=== PATIENT | male | born 1935 | race Caucasian/White ===

== ENCOUNTER → 2017-09-09 | Outpatient (CLI) | payer MEDICARE | END | disposition home or self-care (01) | LOC: PCVCCLINIC 11:17 | DX: I48.91 Unspecified atrial fibrillation (principal); E78.4 Other hyperlipidemia; I10 Essential (primary) hypertension; I45.10 Unspecified right bundle-branch block; R94.31 Abnormal electrocardiogram [ECG] [EKG]; Z79.82 Long term (current) use of aspirin; Z79.899 Other long term (current) drug therapy | CPT/HCPCS: 80061; 93005; G0463 ==

== ENCOUNTER → 2018-03-10 | Outpatient (CLI) | payer MEDICARE | END | disposition home or self-care (01) | LOC: PCVCCLINIC 10:41 | DX: I10 Essential (primary) hypertension (principal); E78.5 Hyperlipidemia, unspecified; I48.91 Unspecified atrial fibrillation | CPT/HCPCS: 80061 ==

== ENCOUNTER → 2018-11-21 | Outpatient (CLI) | payer MEDICARE | END | disposition home or self-care (01) | LOC: PCVCCLINIC 11:42 | PROVIDERS: ATTEND Internal Medicine | DX: I25.10 Atherosclerotic heart disease of native coronary artery without angina pectoris (principal); I10 Essential (primary) hypertension; I48.91 Unspecified atrial fibrillation; E11.9 Type 2 diabetes mellitus without complications; K21.9 Gastro-esophageal reflux disease without esophagitis; Z86.79 Personal history of other diseases of the circulatory system; Z87.891 Personal history of nicotine dependence; Z79.82 Long term (current) use of aspirin; Z88.8 Allergy status to other drugs, medicaments and biological substances | CPT/HCPCS: 93005; G0463; 36415 ==

== ENCOUNTER → 2018-12-12 | Outpatient (CLI) | payer MEDICARE | END | disposition home or self-care (01) | LOC: PCVCCLINIC 10:00 | PROVIDERS: ATTEND Internal Medicine | DX: R06.00 Dyspnea, unspecified (principal); I10 Essential (primary) hypertension; Z86.79 Personal history of other diseases of the circulatory system; Z79.82 Long term (current) use of aspirin | CPT/HCPCS: G0463 ==

== ENCOUNTER → 2019-01-09 | Outpatient (CLI) | payer MEDICARE | END | disposition home or self-care (01) | LOC: PCVCCLINIC 10:00 | PROVIDERS: ATTEND Internal Medicine | DX: I48.0 Paroxysmal atrial fibrillation (principal); I25.119 Atherosclerotic heart disease of native coronary artery with unspecified angina pectoris; I35.0 Nonrheumatic aortic (valve) stenosis; K21.9 Gastro-esophageal reflux disease without esophagitis; E03.9 Hypothyroidism, unspecified; E11.9 Type 2 diabetes mellitus without complications; I10 Essential (primary) hypertension; E78.5 Hyperlipidemia, unspecified; Z87.891 Personal history of nicotine dependence; Z88.5 Allergy status to narcotic agent | CPT/HCPCS: 93005; G0463 ==

== ENCOUNTER → 2019-02-21 | Outpatient (CLI) | payer MEDICARE | END | disposition home or self-care (01) | LOC: PCVCCLINIC 08:50 | PROVIDERS: ATTEND Internal Medicine | DX: I48.91 Unspecified atrial fibrillation (principal); I10 Essential (primary) hypertension; E78.5 Hyperlipidemia, unspecified; I35.0 Nonrheumatic aortic (valve) stenosis; E11.9 Type 2 diabetes mellitus without complications; K21.9 Gastro-esophageal reflux disease without esophagitis; E03.9 Hypothyroidism, unspecified; Z88.5 Allergy status to narcotic agent | CPT/HCPCS: 93005; G0463 ==

== ENCOUNTER → 2019-06-20 | Outpatient (CLI) | payer MEDICARE | END | disposition home or self-care (01) | LOC: PCVCCLINIC 15:14 | PROVIDERS: ATTEND Internal Medicine | DX: I48.0 Paroxysmal atrial fibrillation (principal); R94.31 Abnormal electrocardiogram [ECG] [EKG]; I10 Essential (primary) hypertension; I35.0 Nonrheumatic aortic (valve) stenosis; I25.10 Atherosclerotic heart disease of native coronary artery without angina pectoris; K21.9 Gastro-esophageal reflux disease without esophagitis; E03.9 Hypothyroidism, unspecified; E78.5 Hyperlipidemia, unspecified; E11.9 Type 2 diabetes mellitus without complications; Z88.8 Allergy status to other drugs, medicaments and biological substances; Z79.82 Long term (current) use of aspirin; Z79.899 Other long term (current) drug therapy; Z86.2 Personal history of diseases of the blood and blood-forming organs and certain disorders involving the immune mechanism; Z87.891 Personal history of nicotine dependence | CPT/HCPCS: 36415; 80061; 93005; G0463 ==

== ENCOUNTER → 2019-06-28 | Outpatient (CLI) | payer MEDICARE ==
--- NOTE | 2019-06-28 13:28 | PCVCIMAG ---
APPROVED REPORT Study performed: 06/28/2019 10:57:11 EXAM: Comprehensive 2D, Doppler, and color-flow Echocardiogram Patient Location: Echo lab Room #: 3Status: routine BSA: 1.73 HR: 63 bpmBP: 116/70 mmHg Rhythm: NSR Other Information Study Quality: Adequate Risk Factors: Cardiac Risk Factors: HTN, DM Indications Aortic Valve Disease Atrial Fibrillation CAD S/P CABGx4 (2005) 2D Dimensions IVSd: 14.29 (7-11mm)LVOT Diam: 19.00 (18-24mm) LVDd: 41.60 mm PWd: 11.58 (7-11mm)Ascending Ao: 35.17 (22-36mm) LVDs: 28.28 (25-40mm) Left Atrium: 55.32 (27-40mm) Aortic Root: 30.30 mm LV Single Plane 4CH: 62.25 % LV Single Plane 2CH: 58.57 % Volumes Left Atrial Volume (Systole) Single Plane 4CH: 129.94 mLSingle Plane 2CH: 91.77 mL LA ESV Index: 63.00 mL/m2 Aortic Valve AoV Peak Enrique.: 3.75 m/s AO Peak Gr.: 56.32 mmHgLVOT Max P.08 mmHg AO Mean Gr.: 36.39 mmHgLVOT Mean P.16 mmHg AO V2 Mean: 2.90 m/sLVOT Max V: 1.01 m/s AO V2 VTI: 89.04 cmLVOT Mean V: 0.71 m/s SEAN (VTI): 0.82 [id number] V1 VTI: 25.13 cm SEAN Vmax: 0.78 cm2 SV (LVOT): 72.72 mL Mitral Valve E/A Ratio: 1.4 MV Decel. Time: 169.70 ms MV E Max Enrique.: 1.25 m/s MV A Enrique.: 0.89 m/s IVRT: 83.04 ms Pulmonary Valve PV Peak Enrique.: 1.15 m/sPV Peak Gr.: 5.30 mmHg Tricuspid Valve TR Peak Enrique.: 4.62 m/s TR Peak Gr.: 85.34 mmHg Left Ventricle The left ventricle is normal size. There is normal LV segmental wall motion. Moderate concentric left ventricular hypertrophy. Left ventricular systolic function is normal. The left ventricular ejection fraction is within the normal range. LVEF is 60%. This study is not technically sufficient to allow evaluation of the LV diastolic function. Right Ventricle The right ventricle is normal size. The right ventricular systolic function is normal. Atria Left atrium is severely dilated. Right atrium is dilated. Aortic Valve Aortic valve is heavily calcified. Trace aortic regurgitation. Peak aortic valve gradient is 56mmHg and mean aortic valve gradient is 36mmHg. Calculated SEAN by the continuity equation is 0.8cm2. Severe aortic stenosis. Mitral Valve There is mitral annular calcification. Suggestion of mild prolapsing subsegement Moderate mitral regurgitation. No evidence of mitral valve stenosis. Tricuspid Valve The tricuspid valve is normal in structure. Moderate tricuspid regurgitation.Pulmonary artery pressure is 85 mmHg plus the right atrial pressure. Severe pulmonary hypertension. Pulmonic Valve The pulmonary valve is normal in structure. Mild pulmonic regurgitation. Great Vessels The aortic root is normal in size. The ascending aorta is normal in size. IVC is not well visualized. Pericardium There is no pericardial effusion. <Conclusion> The left ventricle is normal size. LVEF is 60%. Left atrium is severely dilated. Right atrium is dilated. Aortic valve is heavily calcified. Trace aortic regurgitation. Peak aortic valve gradient is 56mmHg and mean aortic valve gradient is 36mmHg. Calculated SEAN by the continuity equation is 0.8cm2. Severe aortic stenosis. There is mitral annular calcification. Suggestion of mild prolapsing subsegement Moderate mitral regurgitation. The tricuspid valve is normal in structure. Moderate tricuspid regurgitation.Pulmonary artery pressure is 85 mmHg plus the right atrial pressure. Severe pulmonary hypertension. The pulmonary valve is normal in structure. Mild pulmonic regurgitation. There is no pericardial effusion.
== END | disposition home or self-care (01) ==
LOC: PCVCIMAG 09:48
PROVIDERS: ATTEND Internal Medicine
DX: I08.8 Other rheumatic multiple valve diseases (principal); I48.0 Paroxysmal atrial fibrillation; I11.9 Hypertensive heart disease without heart failure; I27.29 Other secondary pulmonary hypertension; I25.119 Atherosclerotic heart disease of native coronary artery with unspecified angina pectoris; K21.9 Gastro-esophageal reflux disease without esophagitis; E11.9 Type 2 diabetes mellitus without complications; E78.5 Hyperlipidemia, unspecified; E03.9 Hypothyroidism, unspecified; G47.33 Obstructive sleep apnea (adult) (pediatric); Z87.891 Personal history of nicotine dependence
CPT/HCPCS: 93306